=== PATIENT | female | born 1975 | race African-American/Black ===

== ENCOUNTER 2019-12-23 17:48 | Emergency (ER) | payer SELFPAY ==
[2019-12-23 17:54] VITALS: BP 143/80; PULSE 102; RESP 14; TEMP 36.7; O2SAT 100
--- NOTE | 2019-12-23 18:23 | ED.DENTAL ---
HPI - Dental/Oral General Chief complaint: Dental/Oral Stated complaint: Tooth pain Time Seen by Provider: 12/23/19 18:17 Source: patient and RN notes reviewed Mode of arrival: ambulatory Limitations: no limitations History of Present Illness HPI Narrative: 44-year-old female presents with concern for right upper dental pain for 2 days. Reports having other wisdom teeth removed, that is the last one she needs to have removed. Reports she has been trying Tylenol for pain, is unable to take ibuprofen due to gastric bypass surgery. She reports left upper facial swelling, denies foul taste in her mouth, fever, malaise. MD Complaint: tooth pain Location: Tooth # (1) Related Data Home Medications Medication Instructions Recorded Confirmed No Home Medications 12/23/19 12/23/19 Allergies Allergy/AdvReac Type Severity Reaction Status Date / Time No Known Allergies Allergy Verified 12/23/19 18:01 Review of Systems Review of Systems: Narrative: CONSTITUTIONAL: Denies malaise, chills, sweats, or fever. EYES: Denies visual changes ENT: Denies rhinorrhea, congestion, sinus pain, otalgia or sore throat. Reports right upper dental pain and facial swelling CARDIOVASCULAR: Denies chest pain, palpitations, or edema. RESPIRATORY: Denies dyspnea. MUSCULOSKELETAL: Denies myalgia. NEUROLOGIC: Denies headache. All systems reviewed & are unremarkable except as noted in HPI and below PMFSH Comments At time of signature, agree with nursing past medical, surgical, social and family history. There is no relevant family history pertinent to the presenting complaint Exam Narrative: Exam Narrative: GENERAL: Well-appearing, well-nourished, and in no acute distress. HEAD: Normocephalic, atraumatic. EYES: PERRLA, conjunctivae clear ENT: Nares clear. Mucous membranes moist. Oropharynx without edema, erythema or lesions. Tooth #1 surrounded with erythema, no periapical abscess noted NECK: Supple. CHEST: No respiratory distress. Speaks in full sentences. HEART: Regular rate and rhythm. SKIN: Warm, dry, no rash. NEURO: Alert and oriented x3. PSYCH: Normal mood and affect Course Course Emergency Course: Patient is aware of diagnosis, understands and agrees to treatment plan. Anticipatory guidance given. Patient agrees to follow-up as directed and is aware of reasons to seek care at the emergency department. Portions of this record may have been created with voice recognition software Vital Signs Vital signs: Vital Signs Temperature 98.0 F 12/23/19 17:54 Pulse Rate 102 H 12/23/19 17:54 Respiratory Rate 14 12/23/19 17:54 Blood Pressure 143/80 H 12/23/19 17:54 Pulse Oximetry 100 12/23/19 17:54 Temperature 98.0 F 12/23/19 17:54 Pulse Rate 102 H 12/23/19 17:54 Respiratory Rate 14 12/23/19 17:54 Blood Pressure 143/80 H 12/23/19 17:54 Pulse Oximetry 100 12/23/19 17:54 Reviewed. Patient has been instructed to follow up with her primary care provider within the next week regarding her elevated blood pressure today. MDM - Dental/Oral MDM Narrative Medical decision making narrative: Patients pain and complaint coupled with physical findings are consistant with dentalgia. There are no focal signs of space occupying lesions that are compromising to the airway; no dysphagia, odynophagia, dysphonia, or dyspnea. No uvular deviation or soft palate edema. Patient is non-toxic appearing. The floor of the mouth is soft with no signs of Marty's Angina; no induration below mandible, no neck pain. Patient is without trismus or drooling and able to swallow secretions. Patient is felt appropriate for discharge home with dental follow up. Critical Care Time Critical Care Time Critical Care Time: No Discharge Plan Discharge Clinical Impression: Toothache Patient Disposition: Home, Self-Care Condition: Stable Instructions: Antibiotic Form, Dental Abscess (ED) Additional Instructions: Take antibiotic as dire
== END 2019-12-23 18:37 | disposition home or self-care (01) ==
PROVIDERS: Emergency Provider Nurse Practitioner
DX: K08.89 Other specified disorders of teeth and supporting structures (principal); Z98.84 Bariatric surgery status
CPT/HCPCS: 99213; G0463